=== PATIENT | male | born 1965 | race Caucasian/White ===

== ENCOUNTER 2016-08-17 19:23 | Observation (INO) | payer MEDICARE, OTHER ==
[~2016-08-17] VITALS: Ht 175.3 cm; Wt 128.9 kg
[~2016-08-17 19:23] MED LIST: ASPIRIN325 MG PO; COREG 3.125M3.125 MG PO; CYMBALTA60 MG PO; FLEXERIL 10 MG10 MG PO; HABITROL 21 MG P1 EA TD; HYZAAR 50-12.51 EACH PO; KLONOPIN TAB 00.5 MG PO; MOBIC7.5 MG PO; NEURONTIN 300300 MG PO; NEURONTIN 400400 MG PO; NEXIUM40 MG PO; NITROSTAT0.4 MG SL; NORVASC 5 MG TAB5 MG PO; PERCOCET 10-321 EACH PO
[2016-08-17 20:18] LABS: HEMOGLOBIN 14.4 gm/dl (14.0-17.5); RED BLOOD COUNT 4.87 M/UL (4.20-5.50); WHITE BLOOD COUNT 8.9 K/UL (4.5-11.0)
[2016-08-18] MEDS ORDERED: RANEXA1000 MG PO (10:57)
[2016-08-18] MEDS ORDERED: NORVASC 5 MG TAB5 MG PO (10:57)
[2016-08-18] MEDS ORDERED: EFFIENT10 MG PO (10:58)
[2016-08-18] MEDS ORDERED: PRAVASTATIN SOD20 MG PO (10:59)
== END 2016-08-18 19:10 | disposition home or self-care (01) ==
LOC: ER1 19:23 → ZEROF 22:30 → PROG CARE 22:30 → ZEROF 22:30 → PROG CARE 08-18 10:20
PROVIDERS: Emergency Medicine; ADMIT Internal Medicine
DX: I25.110 Atherosclerotic heart disease of native coronary artery with unstable angina pectoris (principal); I25.82 Chronic total occlusion of coronary artery; I71.2 Thoracic aortic aneurysm, without rupture; I10 Essential (primary) hypertension; E78.5 Hyperlipidemia, unspecified; M51.36 Other intervertebral disc degeneration, lumbar region; F41.9 Anxiety disorder, unspecified; E66.9 Obesity, unspecified; K21.9 Gastro-esophageal reflux disease without esophagitis; F17.210 Nicotine dependence, cigarettes, uncomplicated; Z90.49 Acquired absence of other specified parts of digestive tract; Z95.5 Presence of coronary angioplasty implant and graft; Z88.8 Allergy status to other drugs, medicaments and biological substances; Z79.82 Long term (current) use of aspirin; Z79.891 Long term (current) use of opiate analgesic; Z79.899 Other long term (current) drug therapy
CPT/HCPCS: ECHO; 36415; 71010; 80053; 80061; 82550; 82553; 83874; 84484; 85025; 85379; 93005; 93306; 96361; 96374; 96375; 96376; 99285; C1769; C1894; G0378; J0583; J1644; J1650; J2250; J2270; J2405; J3010; J7030; Q9963; Q9965

== ENCOUNTER 2016-09-18 21:26 | Emergency (ER) | payer MEDICARE ==
[~2016-09-18 21:26] MED LIST changes: +EFFIENT10 MG PO; +PRAVASTATIN SOD20 MG PO; +RANEXA1000 MG PO
== END 2016-09-19 01:03 | disposition left against medical advice (07) ==
LOC: ER1 21:26
DX: Z53.21 Procedure and treatment not carried out due to patient leaving prior to being seen by health care provider (principal)
CPT/HCPCS: 93005

== ENCOUNTER 2021-06-09 17:47 | Emergency (ER) | payer MEDICARE, OTHER ==
[~2021-06-09 17:47] MED LIST changes: +ASPIR 8181 MG PO; +CYCLOBENZAPRINE10 MG PO; +CYMBALTA 30 MG30 MG PO; +DEPAKOTE500 MG PO; +IBU800 MG PO; +KEFLEX CAP 500500 MG PO; +KLONOPIN1 MG PO; +NEURONTIN800 MG PO; +PROAIR INH; +VIT C PO
[2021-06-09] MEDS ORDERED: ONDANSETRON ODT4 MG PO (22:14)
== END 2021-06-09 22:22 | disposition home or self-care (01) ==
LOC: ER1 17:47
DX: J02.9 Acute pharyngitis, unspecified (principal); R11.0 Nausea; Z20.822 Contact with and (suspected) exposure to COVID-19; I11.9 Hypertensive heart disease without heart failure; E78.5 Hyperlipidemia, unspecified; I25.10 Atherosclerotic heart disease of native coronary artery without angina pectoris; F17.210 Nicotine dependence, cigarettes, uncomplicated; I25.2 Old myocardial infarction; Z95.1 Presence of aortocoronary bypass graft; Z95.5 Presence of coronary angioplasty implant and graft; Z88.8 Allergy status to other drugs, medicaments and biological substances; Z79.01 Long term (current) use of anticoagulants; Z88.5 Allergy status to narcotic agent; Z79.02 Long term (current) use of antithrombotics/antiplatelets
CPT/HCPCS: 0240U; 87081; 87880; 99283

== ENCOUNTER 2021-09-14 22:39 | Inpatient (IN) | payer MEDICARE, OTHER ==
[~2021-09-14] VITALS: Ht 175.3 cm; Wt 113.4 kg
[~2021-09-14 22:39] MED LIST changes: -ASPIR 8181 MG PO; +ASPIRIN EC81 MG PO; +NEURONTIN600 MG PO; -NEURONTIN800 MG PO; +ONDANSETRON ODT4 MG PO; +PROAIR HFA8.5 GM INH; -PROAIR INH
[2021-09-15 00:11] LABS: HEMOGLOBIN 13.3 gm/dl (14.0-17.5); RED BLOOD COUNT 4.99 M/UL (4.20-5.50); WHITE BLOOD COUNT 13.9 K/UL (4.5-11.0)
[2021-09-15 00:56] LABS: BUN/CREATININE RATIO 9 (0-10)
[2021-09-15] MEDS ORDERED: SEROQUEL50 MG PO (02:51)
[2021-09-15] MEDS ORDERED: METOPROLOL SUCC25 MG PO (02:52)
[2021-09-15] MEDS ORDERED: RANEXA1000 MG PO (02:52)
[2021-09-15] MEDS ORDERED: ELIQUIS5 MG PO (02:53)
[2021-09-15] MEDS ORDERED: ENTRESTO 24 MG1 EACH PO (02:55)
[2021-09-15] MEDS ORDERED: HYDROCODON-ACE1 EAC6 PO (09:58)
[2021-09-15] MEDS ORDERED: ZOCOR40 MG PO (10:01)
[2021-09-15] MEDS ORDERED: ZOFRAN ODT 4 MG4 MG PO (10:01)
[2021-09-15] MEDS ORDERED: TRELEGY ELLIPT1 EACH INH (10:02)
[2021-09-15 23:58] LABS: CANDIDA ALBICANS Not Detected (Negative); CANDIDA KRUSEI Not Detected (Negative); CANDIDA TROPICALIS Not Detected (Negative); ESCHERICHIA COLI Not Detected (Negative); HAEMOPHILUS INFLUENZAE Not Detected (Negative); KLEBSIELLA OXYTOCA Not Detected (Negative); KLEBSIELLA PNEUMONIAE Not Detected (Negative); KPC-CARBAPENEM-RESISTANCE GENE Not Detected (Negative); PROTEUS Not Detected (Negative); PSEUDOMONAS AERUGINOSA Not Detected (Negative); SERRATIA MARCESANS Not Detected (Negative); STAPHYLOCOCCUS Not Detected (Negative); STAPHYLOCOCCUS AUREUS Not Detected (Negative); STREP AGALACTIAE (GROUP B) Not Detected (Negative); STREP PYOGENES (GROUP A) Not Detected (Negative); STREPTOCOCCUS Not Detected (Negative); vanA/B (VANCOMYCIN RESIST GENE Not Detected (Negative)
[2021-09-16 05:11] LABS: RED BLOOD COUNT 4.55 M/UL (4.20-5.50); WHITE BLOOD COUNT 15.5 K/UL (4.5-11.0)
[2021-09-16 05:44] LABS: BUN/CREATININE RATIO 12 (0-10)
--- NOTE | 2021-09-16 22:47 | NUR ---
PT EDUCATED ABOUT STAYING ON MONITOR, BUT HE REFUSES. WILL GET A TELEBOX AND TRY THAT.
[2021-09-17 07:53] LABS: HEMOGLOBIN 10.9 gm/dl (14.0-17.5); RED BLOOD COUNT 4.18 M/UL (4.20-5.50)
[2021-09-17 07:55] LABS: BUN/CREATININE RATIO 12 (0-10)
[2021-09-18 06:26] LABS: RED BLOOD COUNT 4.56 M/UL (4.20-5.50)
[2021-09-18 06:34] LABS: WHITE BLOOD COUNT 13.2 K/UL (4.5-11.0)
[2021-09-18 06:56] LABS: BUN/CREATININE RATIO 10 (0-10)
[2021-09-19 03:31] LABS: HEMOGLOBIN 11.6 gm/dl (14.0-17.5); RED BLOOD COUNT 4.45 M/UL (4.20-5.50); WHITE BLOOD COUNT 10.1 K/UL (4.5-11.0)
[2021-09-19 03:49] LABS: BUN/CREATININE RATIO 9 (0-10)
--- NOTE | 2021-09-20 09:42 | NUR ---
PT HAS BEEN UP WALKING TO THE BATHROOM WITH NO ISSUES REPORTED, REPORTED PT LEAVES FLOOR.
[2021-09-22 03:17] LABS: HEMOGLOBIN 10.8 gm/dl (14.0-17.5); RED BLOOD COUNT 4.14 M/UL (4.20-5.50); WHITE BLOOD COUNT 10.7 K/UL (4.5-11.0)
[2021-09-22 03:38] LABS: BUN/CREATININE RATIO 11 (0-10)
[2021-09-23 09:43] LABS: HEMOGLOBIN 12.2 gm/dl (14.0-17.5); WHITE BLOOD COUNT 10.5 K/UL (4.5-11.0)
[2021-09-23 09:50] LABS: RED BLOOD COUNT 4.67 M/UL (4.20-5.50)
[2021-09-23 09:54] LABS: BUN/CREATININE RATIO 10 (0-10)
[2021-09-23] MEDS ORDERED: AMPICILLIN INJ (13:16)
[2021-09-23] MEDS ORDERED: NICOTINE PATCH1 EAC2 TD (13:18)
[2021-09-23] MEDS ORDERED: LOPRESSOR 25 MG25 MG PO (13:18)
[2021-09-23] MEDS ORDERED: CRESTOR20 MG PO (13:22)
[2021-09-23] MEDS ORDERED: MORPHINE SU2 MG/1 ML IVP (13:24)
== END 2021-09-23 16:37 | disposition short-term general hospital (02) | DRG 281 ==
LOC: ER1 22:39 → PROG CARE 09-15 01:52 → CDU 09-15 01:52 → MED SURG 4 09-15 01:52 → PROG CARE 09-15 08:37 → MED SURG 4 09-17 04:08
PROVIDERS: Internal Medicine; Nurse Practitioner; Physician Assistant; ADMIT Internal Medicine
PROC: B24BZZZ Ultrasonography of Heart with Aorta (ICD-10-PCS; 2021-09-15)
PROC: 4A023N7 Measurement of Cardiac Sampling and Pressure, Left Heart, Percutaneous Approach (ICD-10-PCS; principal; 2021-09-16)
PROC: B2111ZZ Fluoroscopy of Multiple Coronary Arteries using Low Osmolar Contrast (ICD-10-PCS; 2021-09-16)
DX: I21.4 Non-ST elevation (NSTEMI) myocardial infarction (principal); I50.22 Chronic systolic (congestive) heart failure; E87.1 Hypo-osmolality and hyponatremia; N39.0 Urinary tract infection, site not specified; R78.81 Bacteremia; T82.855A Stenosis of coronary artery stent, initial encounter; N17.9 Acute kidney failure, unspecified; I25.10 Atherosclerotic heart disease of native coronary artery without angina pectoris; Y83.8 Other surgical procedures as the cause of abnormal reaction of the patient, or of later complication, without mention of misadventure at the time of the procedure; E78.5 Hyperlipidemia, unspecified; I11.0 Hypertensive heart disease with heart failure; J44.9 Chronic obstructive pulmonary disease, unspecified; F41.9 Anxiety disorder, unspecified; K21.9 Gastro-esophageal reflux disease without esophagitis; E66.9 Obesity, unspecified; I48.0 Paroxysmal atrial fibrillation; Z95.2 Presence of prosthetic heart valve; Z95.5 Presence of coronary angioplasty implant and graft; Z90.49 Acquired absence of other specified parts of digestive tract; Z98.890 Other specified postprocedural states; Z88.6 Allergy status to analgesic agent; Z82.49 Family history of ischemic heart disease and other diseases of the circulatory system; Z82.3 Family history of stroke; I25.5 Ischemic cardiomyopathy; I70.202 Unspecified atherosclerosis of native arteries of extremities, left leg; B95.2 Enterococcus as the cause of diseases classified elsewhere; F17.210 Nicotine dependence, cigarettes, uncomplicated; Z79.01 Long term (current) use of anticoagulants; Z79.82 Long term (current) use of aspirin; Z88.8 Allergy status to other drugs, medicaments and biological substances; Z79.899 Other long term (current) drug therapy; Z68.36 Body mass index [BMI] 36.0-36.9, adult
CPT/HCPCS: ECHO; 0240U; 36415; 70450; 71045; 71250; 73560; 73718; 76870; 80048; 80053; 80202; 80307; 81001; 82550; 82553; 83735; 83880; 84484; 85025; 85027; 85610; 85730; 86140; 87040; 87077; 87086; 87150; 87186; 93005; 93306; 93926; 93971; 94760; 96374; 96376; 99152; 99153; 99285; C1769; J0290; J0696; J1170; J1200; J1644; J2250; J2270; J2405; J2930; J3010; J3370; J7040; J7070; Q9967